=== PATIENT | male | born 1980 | race Caucasian/White ===

== ENCOUNTER 2021-03-09 11:09 | Emergency (ER) | payer OTHER ==
[~2021-03-09] VITALS: Ht 182.8 cm; Wt 117.9 kg
[2021-03-09] MEDS ORDERED: PREDNISONE50 MG PO (11:57)
== END 2021-03-09 12:40 | disposition home or self-care (01) ==
LOC: ED 11:09
DX: G89.29 Other chronic pain (principal); M25.551 Pain in right hip; M25.552 Pain in left hip

== ENCOUNTER → 2024-10-18 | Outpatient (CLI) | payer OTHER ==
[~2024-10-18] MED LIST: PREDNISONE50 MG PO
== END | disposition home or self-care (01) ==
LOC: RAD 11:46
PROVIDERS: ATTEND Nurse Practitioner Family
DX: S32.2XXA Fracture of coccyx, initial encounter for closed fracture (principal); M54.16 Radiculopathy, lumbar region; X58.XXXA Exposure to other specified factors, initial encounter; Y93.89 Activity, other specified; Y92.89 Other specified places as the place of occurrence of the external cause; Y99.8 Other external cause status